=== PATIENT | male | born 1970 | race Caucasian/White ===

== ENCOUNTER 2018-06-11 09:35 | Emergency (ER) | payer BC ==
--- NOTE | 2018-06-11 10:47 | RAD ---
HISTORY: injury, left knee pain COMPARISONS: None VIEWS: 4, Frontal, lateral, axial, and oblique views of the left knee FINDINGS: BONE DENSITY: Normal. BONES: There is no displaced fracture. JOINTS: There is mild patellofemoral and medial compartment joint space narrowing and osteophyte formation. There is no suprapatellar joint effusion or lipohemarthrosis. ALIGNMENT: There is no dislocation. SOFT TISSUES: Unremarkable. OTHER FINDINGS: None. IMPRESSION: NO ACUTE OSSEOUS INJURY. IF SYMPTOMS PERSIST, RECOMMEND REPEAT IMAGING.
[2018-06-11] MEDS ORDERED: HYDROcodone/ACETAMIN 5-325 MG* 1 TAB PO ONE (11:15)
--- NOTE | 2018-06-11 11:24 | ED ---
Lower Extremity - HPI Summary HPI Summary: This is scribe Vega Gee documenting for attending Dr. Jeyson MONTES. Pt is a 47 y/o M who presents to ED c/o left knee pain x 1 week. At triage he rated the pain as 7/10 and describes it as a dull pain that works up to a sharp pain. Pain is specifically located at the medial aspect of the left knee. One week ago he twisted his left knee when he tripped on a hole in his front yard and notes that the left knee is swollen. He has been taking care of it at home by wrapping it with kai bandages and icing it, and has been taking 4 ibuprofen every 2 hours for pain management. Pt works at [employer] location and constantly getting in and out of cars has been twisting and exacerbating knee condition. Resting alleviates pain. When he wakes in the morning he rates pain as 5/10, but while he works and moves around the pain increases to 8/10. Notes that knee is hot, but denies erythema. Denies having had problems with left knee before, but has had tendinitis in right knee. Denies FMHx of arthritis. PMHx of HBP. No surgical history. I, Dr. Benítez, personally performed the services described in this documentation as scribed in my presence and it is both accurate and complete. Home Medications Medication Instructions Recorded Confirmed Type HYDROcodone/ACETAMIN 5-325 MG* 2 tab PO Q6H PRN #15 tab MDD 8 06/11/18 Rx [Madison 5-325 TAB*] Ibuprofen TAB* [Motrin TAB* 800 MG] 800 mg PO Q6H #30 tab 06/11/18 Rx - History of Current Complaint Chief Complaint: EDExtremityLower Stated Complaint: LT KNEE INJURY Time Seen by Provider: 06/11/18 10:53 Hx Obtained From: Patient Mechanism Of Injury: Twisted Onset of Pain: Immediate Onset/Duration: Days Severity Currently: Moderate Pain Intensity: 7 Pain Scale Used: 0-10 Numeric Timing: Lasting Days Location: Is Discrete @ - medial aspect of left knee Character Of Pain: Sharp, Dull Associated Signs And Symptoms: Positive: Swelling, Knee Pain. Negative: Redness Aggravating Factor(s): Ambulation, Movement Alleviating Factor(s): Rest Able to Bear Weight: Yes - Allergies/Home Medications Allergies/Adverse Reactions: Allergies Allergy/AdvReac Type Severity Reaction Status Date / Time No Known Allergies Allergy Verified 06/11/18 09:44 Home Medications: Home Medications Omeprazole 1 cap PO DAILY 06/11/18 [History Confirmed 06/11/18] Rosuvastatin Calcium 1 tab PO DAILY 06/11/18 [History Confirmed 06/11/18] hydroCHLOROthiazide [Hydrochlorothiazide] 1 cap PO DAILY 06/11/18 [History Confirmed 06/11/18] PMH/Surg Hx/FS Hx/Imm Hx Previously Healthy: No Cardiovascular History: Reports: Hx Hypertension - Surgical History Surgery Procedure, Year, and Place: no surgery Infectious Disease History: No Infectious Disease History: Denies: Traveled Outside the [place] in Last 30 Days - Family History Known Family History: Positive: Hypertension - Social History Occupation: Employed Full-time Lives: With Family Alcohol Use: Rare Substance Use Type: Reports: Marijuana Smoking Status (MU): Former Smoker Review of Systems Constitutional: Negative Cardiovascular: Negative Respiratory: Negative Gastrointestinal: Negative Musculoskeletal: Other - swelling left knee Positive: Arthralgia - left knee pain, Edema Positive: Other - Negative: Erythema Neurological: Negative Psychological: Normal All Other Systems Reviewed And Are Negative: Yes Physical Exam - Summary Physical Exam Summary: Appearance: Well-appearing, moderate pain distress, well-nourished Skin: Warm, color reflects adequate perfusion, dry Head: Normal Head/Face inspection, atraumatic Eyes: Conjunctiva clear ENT: Normal inspection Neck: Supple, no nodes, no JVD Respiratory: Lungs clear, normal breath sounds, no respiratory distress Cardio: RRR, No murmur, pulses normal, brisk capillary refill Abdomen: Soft, nontender Bowel sounds: Present Musculoskeletal: Strength Intact/ROM intact, no calf tenderness, diffuse swelling of the left knee, point tenderness, medial site of attachment of MCL, ligaments stable, distal pulses intact, knee is not red or hot, ankle and hip are w/o pain on palpation. Psychological: Normal Neuro: Alert, muscle tone normal, no focal deficit Detailed Neuro Exam (in place of other neuro section above): A&O x3, CN II-XII intact, motor function 5/5, sensation intact, cerebellar normal Triage Information Reviewed: Yes Vital Signs On Initial Exam: Initial Vitals Temp Pulse Resp BP Pulse Ox 97.5 F 86 14 140/97 96 06/11/18 09:45 06/11/18 09:45 06/11/18 09:45 06/11/18 09:45 06/11/18 09:45 Vital Signs Reviewed: Yes Diagnostics - Vital Signs Vital Signs Temp Pulse Resp BP Pulse Ox 06/11/18 09:45 97.5 F 86 14 140/97 96 - Laboratory Lab Statement: Any lab studies that have been ordered have been reviewed, and results considered in the medical decision making process. - Radiology Left Knee X-Ray Radiology Interpretation Completed By: Radiologist - Impression: NO ACUTE OSSEOUS INJURY. IF SYMPTOMS PERSIST, RECOMMEND REPEAT IMAGING. ED Physician reviewed this report. Re-Evaluation - Re-Evaluation First Eval Re-Evaluation Time: 11:30 Change: Improved Comment: Knee immobilizer in place, given hydrocodone x 2. Discussed discharge and follow up, is present. Pt agrees to discharge. Declines work release. Lower Extremity Course/Dx - Course Course Of Treatment: 47 yo M with left knee pain and swelling x 1week after twisting injury, no relief with ibuprofen OTC at home (frequent q 2 hr dosing, advised and prescribed how to take ibuprofen). Knee xray is neg. Pt wants to continue working, and states he will continue to work, even if I give him a work release. Given a knee immobilizer, but advised to wear it only for a few days maximum and to have definite follow up with Dr. Lucero or Dr. Wren. ( Note pt states his PCP is now Dr. Lucero, not Dr. Galan). Pt rx'd ibuprofen 800mg q 6, and given Rx for hydrocodone 5/325, #15 for severe pain. I stop showed no search items for Mr. Jewell. - Diagnoses Differential Diagnosis/HQI/PQRI: Positive: Contusion, Fracture (Closed), Sprain , Strain, Tendonitis Provider Diagnoses: Left knee sprain, Hypertension, poor control Discharge - Sign-Out/Discharge Documenting (check all that apply): Patient Departure - home - Discharge Plan Condition: Stable Disposition: HOME Prescriptions: HYDROcodone/ACETAMIN 5-325 MG* [[place] 5-325 TAB*] 2 tab PO Q6H PRN #15 tab MDD 8 PRN Reason: Severe Pain Ibuprofen TAB* [Motrin TAB* 800 MG] 800 mg PO Q6H #30 tab Patient Education Materials: Knee Sprain (ED), Knee Immobilizer (ED) Referrals: Mary Wren MD [Medical Doctor] - 1 Week Amy Lucero MD [Medical Doctor] - 2 Days Additional Instructions: Your knee xray did not show any abnormalities today. You may need more imaging , such as an MRI, but Dr. Galan or the orthopedist, Dr. Wren or one of her colleagues will help determine if that is needed. In the meantime, rest the knee, ice it, elevate it, and wear the knee immobilizer as needed for comfort, or continue using the kai. We gave you one dose of hydrocodone with acetaminophen while you were in the ER. You may take that as needed every 6 hrs, one or two tablets. Do not drive , operate machinery, or drink alcohol within 6 hrs of taking the hydrocodone. Dr. Benítez prescribed 800mg ibuprofen. So stop taking the over the counter ibuprofen (Advil or Motrin) while you are using the prescription ibuprofen. You may take ibuprofen 800mg (4 of the 200mg over the counter ibuprofen or one of the prescription ibuprofen) four times a day. Be sure to take the ibuprofen with food, or you can get stomach bleeding. Return to the ER if you have new or worsening symptoms. - Billing Disposition and Condition Condition: STABLE Disposition: Home
[2018-06-11 11:54] VITALS: BP 127/90
== END 2018-06-11 11:53 | disposition home or self-care (01) ==
LOC: ED 09:35
DX: S83.92XA Sprain of unspecified site of left knee, initial encounter (principal); X50.1XXA Overexertion from prolonged static or awkward postures, initial encounter; Y93.9 Activity, unspecified; Y92.9 Unspecified place or not applicable; I10 Essential (primary) hypertension; Z87.891 Personal history of nicotine dependence
CPT/HCPCS: 99282